=== PATIENT | male | born 1955 | race Hispanic/Latino ===

== ENCOUNTER → 2023-11-03 | Outpatient (CLI) | payer OTHER ==
[2023-11-03 16:20] LABS: BASOPHILS # (AUTO) 0.02 K/uL (0.00-0.20); BASOPHILS % (AUTO) 0.7 % (0.0-5.0); EOSINOPHILS # (AUTO) 0.05 K/uL (0.00-0.70); EOSINOPHILS % (AUTO) 1.6 % (0.0-8.0); HEMATOCRIT 43.9 % (42-54); LYMPHOCYTES # (AUTO) 1.3 K/uL (1.0-4.8); LYMPHOCYTES % (AUTO) 42.7 % (21.0-51.0); MEAN CORPUSCULAR HEMOGLOBIN 31.9 pg (27.0-33.0); MEAN CORPUSCULAR HGB CONC 33.9 g/dL (32.0-36.0); MONOCYTES # (AUTO) 0.2 K/uL (0.1-1.0); MONOCYTES % (AUTO) 7.8 % (3.0-13.0); NEUTROPHILS # (AUTO) 1.5 K/uL (1.8-7.7); NEUTROPHILS % (AUTO) 47.2 % (40.0-77.0); PLATELET COUNT (AUTO) 218 K/uL (130-400); RED BLOOD CELL COUNT(AUTO) 4.67 MIL/uL (4.50-6.20); WHITE BLOOD COUNT (AUTO) 3.1 K/uL (4.8-10.8)
[2023-11-03 16:34] LABS: HEMOGLOBIN A1C 5.8 % (4.0-6.0)
[2023-11-03 16:58] LABS: ALBUMIN 4.1 g/dL (3.5-5.0); BILIRUBIN,TOTAL 2.5 mg/dL (0.2-1.0); POTASSIUM 4.1 mmol/L (3.5-5.1); TOTAL PROTEIN, SERUM 7.6 g/dL (6.0-8.3)
== END | disposition home or self-care (01) ==
LOC: LAB 11:58
PROVIDERS: ATTEND Internal Medicine
DX: I25.118 Atherosclerotic heart disease of native coronary artery with other forms of angina pectoris (principal); I45.10 Unspecified right bundle-branch block; Z79.899 Other long term (current) drug therapy
CPT/HCPCS: 36415; 80053; 80061; 83036; 85025

== ENCOUNTER 2024-04-12 07:00 | Day surgery (SDC) | payer OTHER ==
[2024-04-09 13:02] VITALS: BP 148/76; PULSE 56; RESP 18
[2024-04-09 13:04] LABS: BASOPHILS # (AUTO) 0.02 K/uL (0.00-0.20); BASOPHILS % (AUTO) 0.6 % (0.0-5.0); EOSINOPHILS # (AUTO) 0.04 K/uL (0.00-0.70); EOSINOPHILS % (AUTO) 1.2 % (0.0-8.0); HEMATOCRIT 42.1 % (42-54); IMMATURE GRANULOCYTE ABSOLUTE 0.01 K/uL (0-1); LYMPHOCYTES # (AUTO) 1.3 K/uL (1.0-4.8); LYMPHOCYTES % (AUTO) 40.2 % (21.0-51.0); MEAN CORPUSCULAR HEMOGLOBIN 32.1 pg (27.0-33.0); MEAN CORPUSCULAR HGB CONC 34.2 g/dL (32.0-36.0); MONOCYTES # (AUTO) 0.2 K/uL (0.1-1.0); MONOCYTES % (AUTO) 6.7 % (3.0-13.0); NEUTROPHILS # (AUTO) 1.7 K/uL (1.8-7.7); PLATELET COUNT (AUTO) 243 K/uL (130-400); RED BLOOD CELL COUNT(AUTO) 4.48 MIL/uL (4.50-6.20); RED CELL DISTRIBUTION WIDTH 12.9 % (11.0-15.5); WHITE BLOOD COUNT (AUTO) 3.3 K/uL (4.8-10.8)
[2024-04-09 13:07] LABS: POTASSIUM 4.1 mmol/L (3.5-5.1)
[2024-04-09 13:09] LABS: ADD UA MICROSCOPIC YES; APPEARANCE,URINE CLEAR (CLEAR); BILIRUBIN,URINE NEGATIVE (NEGATIVE); COLOR,URINE LIGHT-YELLOW (YELLOW); GLUCOSE, URINE (UA) NEGATIVE (NEGATIVE); KETONES,URINE NEGATIVE (NEGATIVE); LEUKOCYTE ESTERASE ,URINE 75 Leu/uL (NEGATIVE); NITRATE,URINE NEGATIVE (NEGATIVE); OCCULT BLOOD,URINE NEGATIVE (NEGATIVE); PH,URINE 5.5 (5.0-8.0); PROTEIN,URINE NEGATIVE (NEGATIVE); UROBILINOGEN,URINE 0.2 mg/dL (0.2-1.0)
[2024-04-09 13:12] LABS: PROTHROMBIN TIME 10.8 SEC (9.6-11.6)
[2024-04-09 13:12] LABS: MUCUS,URINE RARE LPF (None Seen); RBC,URINE 0-1 /HPF (0-1)
[2024-04-09 13:13] LABS: PARTIAL THROMBOPLASTIN TIME 26.6 SEC (26.3-35.5)
[~2024-04-12] VITALS: Ht 167.6 cm; Wt 66.5 kg
[2024-04-12] VITALS (18 sets, daily range): BP systolic 124–177; BP diastolic 58–83; PULSE 49–62; RESP 14–18
[~2024-04-12 07:00] MED LIST: ATOR40TA71 PO; CLOP75TA32 PO; ISOS10TA8 PO; LEVO50TA11 PO; METO25 PO; OXYB10TA30 PO; TAMS-1 PO
[2024-04-12] MEDS ORDERED: dexaMETHasone SOD PHOSPHATE 10MG/ML 1ML VIAL ONE (07:26)
[2024-04-12] MEDS ORDERED: LIDOCAINE PF 100MG/5ML (2%) SYRINGE 5ML ONE (07:26)
[2024-04-12] MEDS ORDERED: SUCCINYLCHOLINE CHLORIDE 20 MG/ML 10 ML VIAL ONE (07:27)
[2024-04-12] MEDS ORDERED: GLYCOPYRROLATE 0.2 MG/ML 5 ML VIAL ONE (07:27)
[2024-04-12] MEDS ORDERED: NEOSTIGMINE METHYLSULFATE 1MG/ML IV ONE (07:27)
[2024-04-12] MEDS ORDERED: proPOFol 10 MG/ML 20ML VIAL IV ONE (07:27)
[2024-04-12] MEDS ORDERED: MIDAZOLAM HCL 1 MG/ML 2ML VIAL ONE (07:27)
[2024-04-12] MEDS ORDERED: ONDANSETRON 4MG INJ ONE ×2 (07:27→07:32)
[2024-04-12] MEDS ORDERED: rocuRONium bROMide 10MG/1ML 5ML VL ONE (07:27)
[2024-04-12] MEDS ORDERED: FENTanyl CITRate PF 50 MCG/1 ML 2ML VIAL ONE ×2 (07:28→09:12)
[2024-04-12] MEDS: cefTRIAXone 1G VIAL ONE (07:36)
[2024-04-12] MEDS: LACTATED RINGERS 1000ML 1,000 ML IV ONE (07:37)
[2024-04-12] MEDS ORDERED: PHENYLEPHRINE HCL 10 MG/ML 1ML VIAL IV ONE (07:58)
[2024-04-12] MEDS: hydrALAZine 20MG/ML VIAL ONE (10:53)
[2024-04-12] MEDS ORDERED: LEVO500P29 IV (12:21)
[2024-04-12] MEDS ORDERED: TRAM50TA4 PO (12:22)
== END 2024-04-12 12:35 | disposition home or self-care (01) ==
LOC: DAH 07:00
PROVIDERS: ATTEND Urology
DX: N40.3 Nodular prostate with lower urinary tract symptoms (principal); N41.0 Acute prostatitis; N41.1 Chronic prostatitis; I10 Essential (primary) hypertension; I25.10 Atherosclerotic heart disease of native coronary artery without angina pectoris; I45.10 Unspecified right bundle-branch block; Z79.01 Long term (current) use of anticoagulants
CPT/HCPCS: 80048; 85025; 85610; 85730; 87086; 81001; 36415; 71045; 93005; 52648; 88305; A6260; A4663; J7030; J7120 ×2; A4354; J3010 ×2; J1100; J0330; J3490 ×2; J2001; J0360; J0696; J2250; J2704; J2405 ×2; J2710; J2371; A4358; A4930; A4215; A4223; A4222; A4221; A4600

== ENCOUNTER 2024-09-13 14:18 | Emergency (ER) | payer OTHER ==
[~2024-09-13] VITALS: Ht 167.6 cm; Wt 66.2 kg
[~2024-09-13 14:18] MED LIST changes: -ATOR40TA71 PO; -CLOP75TA32 PO; -ISOS10TA8 PO; +LEVO500P29 IV; -LEVO50TA11 PO; -METO25 PO; -OXYB10TA30 PO; -TAMS-1 PO; +TRAM50TA4 PO
--- NOTE | 2024-09-13 14:27 | EKG ---
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
[2024-09-13 14:47] LABS: BASOPHILS # (AUTO) 0.04 K/uL (0.00-0.20); EOSINOPHILS # (AUTO) 0.06 K/uL (0.00-0.70); EOSINOPHILS % (AUTO) 1.6 % (0.0-8.0); HEMATOCRIT 40.1 % (42-54); IMMATURE GRANULOCYTE ABSOLUTE 0.01 K/uL (0-1); LYMPHOCYTES # (AUTO) 1.6 K/uL (1.0-4.8); LYMPHOCYTES % (AUTO) 42.3 % (21.0-51.0); MEAN CORPUSCULAR HEMOGLOBIN 31.9 pg (27.0-33.0); MEAN CORPUSCULAR HGB CONC 34.7 g/dL (32.0-36.0); MONOCYTES # (AUTO) 0.2 K/uL (0.1-1.0); MONOCYTES % (AUTO) 6.3 % (3.0-13.0); NEUTROPHILS # (AUTO) 1.9 K/uL (1.8-7.7); NEUTROPHILS % (AUTO) 48.5 % (40.0-77.0); PLATELET COUNT (AUTO) 239 K/uL (130-400); RED BLOOD CELL COUNT(AUTO) 4.36 MIL/uL (4.50-6.20); RED CELL DISTRIBUTION WIDTH 12.6 % (11.0-15.5); WHITE BLOOD COUNT (AUTO) 3.8 K/uL (4.8-10.8)
[2024-09-13 14:58] LABS: CREATININE 0.8 mg/dL (0.5-1.3); INR <= 0.93 (0.85-1.15); POTASSIUM 3.7 mmol/L (3.5-5.1); PROTHROMBIN TIME 10.4 SEC (9.6-11.6)
[2024-09-13 14:59] LABS: PARTIAL THROMBOPLASTIN TIME 26.2 SEC (26.3-35.5)
[2024-09-13 15:06] LABS: APPEARANCE,URINE CLEAR (CLEAR); BILIRUBIN,URINE NEGATIVE (NEGATIVE); COLOR,URINE COLORLESS (YELLOW); GLUCOSE, URINE (UA) NEGATIVE (NEGATIVE); KETONES,URINE NEGATIVE (NEGATIVE); LEUKOCYTE ESTERASE ,URINE NEGATIVE Leu/uL (NEGATIVE); NITRATE,URINE NEGATIVE (NEGATIVE); OCCULT BLOOD,URINE NEGATIVE (NEGATIVE); PH,URINE 6.5 (5.0-8.0); PROTEIN,URINE NEGATIVE (NEGATIVE); UROBILINOGEN,URINE 0.2 mg/dL (0.2-1.0)
[2024-09-13 15:06] LABS: B-TYPE NATRIURETIC PEPTIDE 60 pg/mL (0-100)
[2024-09-13 15:07] LABS: ADD UA MICROSCOPIC YES; RBC,URINE 0-1 /HPF (0-1); WBC,URINE 0-1 /HPF (0-1)
--- NOTE | 2024-09-13 15:27 | ERN ---
General Chief Complaint: Chest Pain Stated Complaint: CHEST PAIN Time Seen by MD: 14:19 Source: patient History of Present Illness Initial Comments Patient is a 68-year-old male coming in to be evaluated for left-sided chest pain. Per patient he has a extensive history of cardiac issues and had a stent placed couple years ago. Patient has been having left-sided chest pain for two days and states the pain is reproducible on palpation pain is localized to the left upper chest region. Patient also states that he was told that he was going to have chest pain for the rest in his life he states he has been reluctant to his uses nitroglycerin. Allergies: Coded Allergies: No Known Drug Allergies (Unverified Allergy, Unknown, 04/09/24) Home Meds Reported Medications Tramadol Hcl (Tramadol HCl) 50 Mg Tablet, 50 MG PO Q6HPRN PRN for PAIN, TAB 04/12/24 Levofloxacin/Dextrose 5%-Water (Levaquin 500 mg/D5w 100 ml) 500 Mg/100 Ml Piggyback, 500 MG IV DAILY, ML 04/12/24 Past Medical History Past Medical History: Angina, CHF, Hypothyroid Medical History Other: THYROID PROBLEM, BNP Past Surgical History: Cholecystectomy Surgical History Other: HEART STENT 2022, PROSTATE VAPORIZATION ROS Dictation CONSTITUTIONAL: No chills, no fever, no weakness, no diaphoresis, no malaise. HEAD/FACE: No signs of trauma. EENT: No eye pain, no blurred vision, no tearing, no double vision, no ear pain, no ear discharge, no nose pain, no nasal congestion, no throat pain, no t hroat swelling, no mouth pain. RESPIRATORY: No cough, no orthopnea, no SOB, no stridor, no wheezing. CARDIOVASCULAR: chest pain, no edema, no palpitations, no syncope. GASTROINTESTINAL/ABDOMINAL: No abdominal pain, no constipation, no diarrhea, no nausea, no vomiting. GENITOURINARY: No abnormal discharge, no dysuria, no frequent urination, no hematuria. No complaints of pain in the genitals. MUSCULOSKELETAL: No back pain, no gout, no joint pain, no joint swelling, no muscle pain, no muscle stiffness, no neck pain. INTEGUMENTARY: No change in color, no change in hair/nails, no dryness, no lesion, no lumps, no rash. NEUROLOGICAL/PSYCH: No anxiety, not depressed, no emotional problem, no headache, no numbness, no pre-existing deficit, no history of seizures, no tremors, no weakness. HEMATOLOGIC/LYMPHATIC: Not anemic, no history of blood clots, no apparent bleeding, no bruising, glands not swollen. All Systems Negative, Except as Noted. Physical Exam Physical Exam Dictation VITAL SIGNS: Reviewed. GENERAL APPEARANCE: Alert, oriented x3, no acute distress, obese. HEAD AND FACE: Non-traumatic. EYES: PERRL, pink conjunctivas, eyelid no trauma, anterior chamber clear. EARS: Pinnas intact and no signs of trauma or erythema. Ear canals clear and no discharge. TMs no erythema. NOSE: No discharge, no bleeding. OROPHARYNX: Mouth normal, teeth no caries, tongue pink. Pharynx clear, no erythema. Tonsils no exudates, no abscesses noted. Mucous membrane moist. NECK: Supple, non-tender, no thyromegaly, no masses, no JVD, no bruits. BREAST: Deferred. CHEST: tenderness, no crepitus, no paradoxical movement, no retractions. LUNGS: Clear, well-ventilated, symmetric, no rales, no wheezing, no rhonchi, no stridor, good breath sounds bilaterally. HEART: Regular rate, regular rhythm, no murmur, no gallops. VASCULAR: No peripheral edema. ABDOMEN: Soft, positive bowel sounds, nondistended, no guarding, nontender, no rebound, no masses no hepatomegaly, no splenomegaly, no Land's sign, no hernias. RECTAL: Deferred. GENITAL: Deferred. NEUROLOGICAL: Normal speech, gross motor function intact, gross sensory function intact. MUSCULOSKELETAL: Neck nontender, full range of motion, back nontender, full range of motion. EXTREMITIES: Nontender, full range of motion. SKIN: Color pink, dry, no turgor, no rash, no lacerations, no abrasions, no co ntusions. LYMPHATICS: Deferred. Results Laboratory and Microbiology Lab and Micro Result Laboratory Tests Test 09/13/24 14:37 09/13/24 14:53 09/13/24 14:57 White Blood Count 3.8 K/uL (4.8-10.8) L Red Blood Count 4.36 MIL/uL (4.50-6.20) L Hemoglobin 13.9 g/dL (14.0-18.0) L Hematocrit 40.1 % (42-54) L Mean Corpuscular Volume 92.0 fL (79-99) Mean Corpuscular Hemoglobin 31.9 pg (27.0-33.0) Mean Corpuscular Hemoglobin Concent 34.7 g/dL (32.0-36.0) Red Cell Distribution Width 12.6 % (11.0-15.5) Platelet Count 239 K/uL (130-400) Mean Platelet Volume 9.0 fL (7.5-10.5) Immature Granulocyte % (Auto) 0.3 % (0-1) Neutrophils (%) (Auto) 48.5 % (40.0-77.0) Lymphocytes (%) (Auto) 42.3 % (21.0-51.0) Monocytes (%) (Auto) 6.3 % (3.0-13.0) Eosinophils (%) (Auto) 1.6 % (0.0-8.0) Basophils (%) (Auto) 1.0 % (0.0-5.0) Neutrophils # (Auto) 1.9 K/uL (1.8-7.7) Lymphocytes # (Auto) 1.6 K/uL (1.0-4.8) Monocytes # (Auto) 0.2 K/uL (0.1-1.0) Eosinophils # (Auto) 0.06 K/uL (0.00-0.70) Basophils # (Auto) 0.04 K/uL (0.00-0.20) Absolute Immature Granulocyte (auto 0.01 K/uL (0-1) Nucleated Red Blood Cells 0.0 % (0.0-0.19) Prothrombin Time 10.4 SEC (9.6-11.6) Prothromb Time International Ratio <= 0.93 (0.85-1.15) Activated Partial Thromboplast Time 26.2 SEC (26.3-35.5) L Sodium Level 143 mmol/L (136-145) Potassium Level 3.7 mmol/L (3.5-5.1) Chloride Level 104 mmol/L (101-111) Carbon Dioxide Level 30 mmol/L (21-32) Blood Urea Nitrogen 8 mg/dL (7-18) Creatinine 0.8 mg/dL (0.5-1.3) Glomerular Filtration Rate Calc 96 mL/min (>90) Random Glucose 99 mg/dL (70-105) Total Calcium 9.1 mg/dL (8.5-10.1) Magnesium Level 2.00 mg/dL (1.80-2.40) Total Creatine Kinase 89 U/L (21-232) Troponin I High Sensitivity 69 ng/L (4-75) B-Type Natriuretic Peptide 60 pg/mL (0-100) Urine Color COLORLESS (YELLOW) Urine Appearance CLEAR (CLEAR) Urine pH 6.5 (5.0-8.0) Urine Specific Mutual 1.005 (1.001-1.031) Urine Protein NEGATIVE mg/dL (NEGATIVE) Urine Glucose (UA) NEGATIVE mg/dL (NEGATIVE) Urine Ketones NEGATIVE mg/dL (NEGATIVE) Urine Occult Blood NEGATIVE (NEGATIVE) Urine Nitrate NEGATIVE (NEGATIVE) Urine Bilirubin NEGATIVE mg/dL (NEGATIVE) Urine Urobilinogen 0.2 mg/dL (0.2-1.0) Urine Leukocyte Esterase NEGATIVE Leila/uL Urine RBC 0-1 /HPF (0-1) Urine WBC 0-1 /HPF (0-1) Urine Bacteria None /HPF (None Seen) Troponin I < 0.05 ng/mL (0.00-0.05) Labs Reviewed?: Yes EKG/XRAY/US/CT/MRI EKG Comment 09/13/2024 time 2:17 p.m. ventricular rate [address] wave elevation or depression NV 179 [place] [address] IMAGING REPORT Signed PATIENT: FELIPE MENDOZA MR#: [id number] : 1955 SEX: M AGE: 68 LOCATION: ED ORDER 24 STATUS: REG REPORT#: [id number] SERVICE 22 REASON: chest pain ORDERING PHYSICIAN: DAVIDSON PATHAK MD PROCEDURE: CXR1VW - CHEST 1VW CHEST 1VW REASON: chest pain COMPARISON: 08-21 FINDINGS: Single view of the chest was obtained. Lungs are clear. Heart size is normal. There is no pulmonary vascular congestion. Mediastinum and bony thorax appear unremarkable. IMPRESSION: 1. Normal single view chest x-ray. DICTATED BY: GEOVANNA DRIVER MD DATE: 09/13/241529 ELECTRONICALLY SIGNED BY: GEOVANNA DRIVER MD DATE: 09/13/241532 [facility] MDM: Differential diagnosis: Chest pain, history of chronic angina, history of stent placement, Patient is a 68-year-old gentleman coming in to be evaluated for left-sided chest pain. Patient was told by chip mixer to take nitroglycerin but he states he does not want to take it laboratory workup negative for acute findings. Patient did receive one dose of nitroglycerin sublingual states his pain subsided. I educated patient on reasons to take nitroglycerin and ways to take it. Patient will be discharged in stable condition with a diagnosis of chronic angina secondary to CAD. Also advised him appropriate follow up with chip mixer and if chest pain resurface is an or he needs immediate evaluation to seek immediate help with PCP or nearest ER. Patient will be discharged pain- free ED Course Orders Procedure Category Date Status Time Cbc With Differential LAB 09/13/24 Complete 14:23 Prothrombin Time With LAB 09/13/24 Complete INR 14:23 B-Type Natriuretic LAB 09/13/24 Complete Peptide 14:23 Chest 1vw RAD 09/13/24 Resulted 14:23 12 Lead Ekg Tracing- EKG 09/13/24 Complete Technical 14:23 Magnesium LAB 09/13/24 Complete 14:23 Creatine Kinase, Total LAB 09/13/24 Complete 14:23 Troponin I High LAB 09/13/24 Complete Sensitivity 14:23 Urinalysis Profile LAB 09/13/24 Logged 14:23 Partial LAB 09/13/24 Complete Thromboplastin Time 14:23 Basic Metabolic Panel LAB 09/13/24 Complete 14:23 Troponin Poc Order LAB 09/13/24 Complete Only 14:28 Bedside Troponin-I LAB.ER 09/13/24 In Process (Poc) 14:28 Urinalysis Profile LAB 09/13/24 Complete 14:47 Nitroglycerin 0.4mg PHA 09/13/24 In Process Sl Tab (Nitrostat) 15:30 Current Medications Medications (Trade) Dose Ordered Sig/Zelda Route PRN Reason Start Time Stop Time Status Last Admin Dose Admin Nitroglycerin (Nitrostat) 0.4 mg AD PRN SL CHEST PAIN 09/13/24 15:30 10/13/24 15:29 Vital Signs Date Time Temp Pulse Resp B/P (MAP) Pulse Ox O2 Delivery O2 Flow Rate FiO2 09/13/24 16:11 63 18 124/70 98 Room Air* 0 21 09/13/24 15:42 61 16 152/71 98 Room Air* 0 21 09/13/24 14:59 98.8 63 14 158/72 99 Room Air* 0 21 09/13/24 14:23 98.2 60 16 164/79 98 Room Air 0 09/13/24 14:19 98.2 60 16 164/79 98 Room Air* 0 21 09/13/24 14:19 98.2 60 16 164/79 Room Air DX & DISP Disposition: Discharge Departure Impression: Primary Impression: Angina pectoris Additional Impression: History of CAD (coronary artery disease) Condition: Stable Additional Instructions: You have been reviewed in the emergency department at [facility] after presenting with chest pain. After considering your history, your risk factors, your EKG and your blood test troponins, have been found to be at very low risk less than (1 in 100) of having a major adverse cardiac event (like heart attack) in the near future. In the " low risk" group, the risks of doing further tests and treatment as the inpatient outweighs the benefits. In many patients in the low risk group for the test of any sort or unnecessary, however he should discuss this further with his general practitioner who will understand the medical and personal backgrounds better. Because we have never declared you" no risk" we would suggest. 1 returning for medical review if you have further episodes of chest pain/arm pain or other concerning symptoms like dizziness, collapse, palpitations or shortness of breath. 2. Following up with your local doctor who will consider the need for further testing and will also ensure that any modifiable risk factors you may have for heart disease are optimally managed. Patient will be discharged in stable condition at the moment discharge patient states , no chest pain Referrals: CLAUDIA MINA MD (PCP) Time of Disposition: 16:38 DAVIDSON PATHAK MD Sep 13, 2024 15:27
[2024-09-13] MEDS ORDERED: NITROGLYCERIN 0.4 MG SL TAB SL PRN (15:30)
--- NOTE | 2024-09-13 15:33 | HMCIMG ---
CHEST 1VW REASON: chest pain COMPARISON: 08-21 FINDINGS: Single view of the chest was obtained. Lungs are clear. Heart size is normal. There is no pulmonary vascular congestion. Mediastinum and bony thorax appear unremarkable. IMPRESSION: 1. Normal single view chest x-ray.
[2024-09-13 16:38] VITALS: BP 120/69; PULSE 61; RESP 20; TEMP 98; O2SAT 98
== END 2024-09-13 16:47 | disposition home or self-care (01) ==
LOC: EDH 14:18
DX: I25.119 Atherosclerotic heart disease of native coronary artery with unspecified angina pectoris (principal); E03.9 Hypothyroidism, unspecified; I50.9 Heart failure, unspecified; Z90.49 Acquired absence of other specified parts of digestive tract; Z95.5 Presence of coronary angioplasty implant and graft; Z20.822 Contact with and (suspected) exposure to COVID-19
CPT/HCPCS: 36415; 71045; 80048; 81001; 82550; 83735; 83880; 84484; 85025; 85610; 85730; 93005; 99285